=== PATIENT | female | born 1985 | race Caucasian/White ===

== ENCOUNTER → 2025-05-04 | Outpatient (CLI) | payer OTHER, SELFPAY ==
--- NOTE | 2025-05-04 15:25 | RAD_ITS ---
PROCEDURE: CERV SPINE 2 OR 3 VIEWS 05/04/2025 REASON FOR EXAM: BILATERAL HAND PAIN AND SWELLING TECHNIQUE: Procedure Code: RADSPCL Modality: DX Procedure: CERV SPINE 2 OR 3 VIEWS COMPARISON: None. FINDINGS: BONES: No fracture or focal osseous lesion. Anatomic spinal alignment. DISC/DEGENERATIVE CHANGES: Disc spaces are preserved. SOFT TISSUES: No acute abnormality seen. Partially imaged right-sided chest port. RAD/Cerv Spine 2 or 3 Views IMPRESSION: No acute abnormality seen. Reading Location: [id number]
== END | disposition home or self-care (01) ==
LOC: MTRAD 15:25
PROVIDERS: Referring Provider Physician Assistant Surgical; Visit Provider Physician Assistant Surgical
DX: S16.1XXA Strain of muscle, fascia and tendon at neck level, initial encounter (principal)
CPT/HCPCS: 72040